=== PATIENT | male | born 1930 | race Caucasian/White ===

== ENCOUNTER 2017-12-15 11:55 | Emergency (ER) | payer OTHER ==
[2017-12-15 12:06] VITALS: TEMP 98.3
[2017-12-15 12:48] LABS: BASOPHILS % (AUTO) 0 % (0-3); EOSINOPHILS % (AUTO) 1 % (0-9); HEMATOCRIT 28 % (39-53); MEAN CORPUSCULAR HGB CONC 31.3 gm/dl (32.0-36.0); MEAN CORPUSCULAR VOLUME 87 fL (80-100); MONOCYTES % (AUTO) 5.6 % (0-12); NEUTROPHILS % (AUTO) 78.7 % (37-80)
[2017-12-15 12:59] LABS: ALBUMIN 3.5 gm/dl (3.4-5.0); ALT 19 IU/L (14-63); GLOM FILT RATE 39 mL/min (>60); POTASSIUM 4.3 mMol/L (3.5-5.1); SODIUM 139 mMol/L (136-145); THYROID STIMULATING HORMONE 0.786 uIU/ml (0.358-3.740)
[2017-12-15] MEDS ORDERED: SODIUM CHLORIDE 0.9% 1000ML 1,000 ML IV ONE (13:17)
[2017-12-15 13:23] LABS: APPEARANCE,URINE Clear; BILIRUBIN,URINE NEGATIVE (NEGATIVE); COLOR,URINE Yellow; GLUCOSE, URINE (UA) NEGATIVE (NEGATIVE); KETONES,URINE NEGATIVE (NEGATIVE); LEUKOCYTE ESTERASE ,URINE NEGATIVE (NEGATIVE); NITRATE,URINE NEGATIVE (NEGATIVE); OCCULT BLOOD,URINE NEGATIVE (NEG-TRACE); UROBILINOGEN,URINE 0.2 (0.2-1.0 EU)
[2017-12-15 13:55] LABS: RBC,URINE 0-1 (0-3AV/HPF); WBC,URINE 0-1 (0-5AV/HPF)
[2017-12-15 15:17] VITALS: BP 148/74; PULSE 77; RESP 16; O2SAT 99
== END 2017-12-15 15:00 | disposition home or self-care (01) | DRG 312 ==
LOC: ED 11:55
DX: R55 Syncope and collapse (principal); F03.90 Unspecified dementia, unspecified severity, without behavioral disturbance, psychotic disturbance, mood disturbance, and anxiety; R79.89 Other specified abnormal findings of blood chemistry; Z95.0 Presence of cardiac pacemaker
CPT/HCPCS: 36415; 71045; 80053; 81001; 84443; 84484; 85025; 93005; 99285